=== PATIENT | female | born 1980 | race Caucasian/White ===

== ENCOUNTER 2019-02-17 15:56 | Emergency (ER) | payer OTHER ==
[2019-02-17] MEDS: predniSONE 20 MG TAB PO (16:46)
[2019-02-17] MEDS: IPRATROPIUM (NEB) 0.5 MG/2.5 ML AMP NEB (16:49)
[2019-02-17] MEDS: ALBUTEROL 0.083% (NEB) 2.5 MG/3 ML AMP NEB (16:49)
== END 2019-02-17 18:34 | disposition home or self-care (01) ==
LOC: FTE 15:56
DX: R05 Cough (principal); F17.210 Nicotine dependence, cigarettes, uncomplicated
CPT/HCPCS: 71046; 94664; 99283-25

== ENCOUNTER 2019-03-19 01:13 | Emergency (ER) | payer OTHER | END 2019-03-19 12:17 | disposition home or self-care (01) | LOC: E/R 01:13 | DX: T40.1X1A Poisoning by heroin, accidental (unintentional), initial encounter (principal); R40.2142 Coma scale, eyes open, spontaneous, at arrival to emergency department; R40.2362 Coma scale, best motor response, obeys commands, at arrival to emergency department; R40.2252 Coma scale, best verbal response, oriented, at arrival to emergency department; F17.210 Nicotine dependence, cigarettes, uncomplicated; T51.91XA Toxic effect of unspecified alcohol, accidental (unintentional), initial encounter; T43.621A Poisoning by amphetamines, accidental (unintentional), initial encounter; X58.XXXA Exposure to other specified factors, initial encounter; Y92.9 Unspecified place or not applicable; Z91.040 Latex allergy status | CPT/HCPCS: 71045; 81025; 99283-25 ==